=== PATIENT | male | born 1990 | race Caucasian/White ===

== ENCOUNTER → 2020-12-23 | Outpatient (CLI) | payer OTHER ==
[~2020-12-23] MED LIST: BUSP10 PO; FAMO20 PO; HYDHCL25; QUET25; TOPI50; VRAYLAR4.5 MG PO; [UNRECOGNIZED DRUG - OTHER]
[2020-12-24 18:20] LABS: Campylobacter Sp Not Detected (NOT DETECT); E. Coli O157 Not Detected (NOT DETECT); Enteroaggregative E. coli-EAEC Not Detected (NOT DETECT); Enteropathogenic E. coli-EPEC Not Detected (NOT DETECT); Enterotoxigenic E. coli-ETEC Not Detected (NOT DETECT); Plesiomonas Shigelloides Not Detected (NOT DETECT); Salmonella Sp Not Detected (NOT DETECT); Shiga Toxin-prod E. coli-STEC Not Detected (NOT DETECT); Shigella/Enteroin E. coli-EIEC Not Detected (NOT DETECT); Vibrio Cholerae Not Detected (NOT DETECT); Vibrio Sp Not Detected (NOT DETECT); Yersinia Enterocolitica Not Detected (NOT DETECT)
[2020-12-24 18:21] LABS: Adenovirus F 40/41 Not Detected (NOT DETECT); Astrovirus Not Detected (NOT DETECT); Cryptosporidium Not Detected (NOT DETECT); Cyclospora Cayetanensis Not Detected (NOT DETECT); Entamoeba Histolytica Not Detected (NOT DETECT); Giardia Lamblia Not Detected (NOT DETECT); Norovirus GI/GII Not Detected (NOT DETECT); Rotavirus A Not Detected (NOT DETECT); Sapovirus Not Detected (NOT DETECT)
== END | disposition home or self-care (01) ==
LOC: LAB SHORT 14:58
PROVIDERS: Student in an Organized Health Care Education/Training Program
DX: R19.7 Diarrhea, unspecified (principal)
CPT/HCPCS: 0097U

== ENCOUNTER 2020-12-26 09:45 | Day surgery (SDC) | payer OTHER ==
[~2020-12-26] VITALS: Ht 167.6 cm; Wt 83.2 kg
--- NOTE | 2020-12-26 11:31 | NUR ---
12/26/20 1131 Janice Paredes PATIENT HAS WHEEZES THROUGHOUT IN PREOP. HE ADMITS TO SMOKING BEFORE COMING IN. HE DOES MOSTLY CLEAR WITH COUGH. HE STATES THIS IS HIS BASELINE.
--- NOTE | 2020-12-26 11:32 | NUR ---
12/26/20 1132 Janice Paredes PATIENT DOES HAVE SIGNS OF SLEEP APNEA, OBSTRUCTING AND SNORING. HE DOES REQUIRE FREQUENT CHIN LIFT TO BREAK OBSTRCTION. PATIENT WILL BE INFORMED AND RECOMMENDED TO SEEK TESTING FOR GALLO
== END 2020-12-26 12:15 | disposition home or self-care (01) ==
LOC: ORSCSDS 09:45
PROVIDERS: Student in an Organized Health Care Education/Training Program
PROC: 0DBE8ZX Excision of Large Intestine, Via Natural or Artificial Opening Endoscopic, Diagnostic (ICD-10-PCS; principal; 2020-12-26 11:00)
PROC: 0DBP8ZX Excision of Rectum, Via Natural or Artificial Opening Endoscopic, Diagnostic (ICD-10-PCS; principal; 2020-12-26 11:00)
PROC: 0DBK8ZX Excision of Ascending Colon, Via Natural or Artificial Opening Endoscopic, Diagnostic (ICD-10-PCS; principal; 2020-12-26 11:00)
PROC: 0DBN8ZX Excision of Sigmoid Colon, Via Natural or Artificial Opening Endoscopic, Diagnostic (ICD-10-PCS; principal; 2020-12-26 11:00)
DX: R19.7 Diarrhea, unspecified (principal); D12.2 Benign neoplasm of ascending colon; D12.5 Benign neoplasm of sigmoid colon; D12.8 Benign neoplasm of rectum; F17.210 Nicotine dependence, cigarettes, uncomplicated; K21.9 Gastro-esophageal reflux disease without esophagitis; Z79.899 Other long term (current) drug therapy
CPT/HCPCS: 88305; J2250; J2704; J7120